=== PATIENT | female | born 1980 | race Two or more races ===

== ENCOUNTER 2021-03-23 12:55 | Observation (INO) | payer SELFPAY ==
[~2021-03-23] VITALS: Ht 160 cm; Wt 78.7 kg
[2021-03-23] MEDS ORDERED: IV RINGERS,LACTATED 1000ML 1,000 ML IV PRN (14:00)
[2021-03-23 14:10] LABS: BILIRUBIN,URINE NEGATIVE (NEG); CLARITY,URINE CLEAR; COLOR,URINE YELLOW; NITRITE,URINE NEGATIVE (NEG); PROTEIN,URINE NEGATIVE (NEG-TRACE); UROBILINOGEN,URINE 0.2 mg/dL (0.2 mg/dL)
[2021-03-23 14:18] LABS: BACTERIA,URINE 0 /HPF (0-FEW)
[2021-03-23 14:19] LABS: RBC,URINE 0 /HPF (0-2); WBC,URINE OCC /HPF (0-4); YEAST,URINE PRESENT /HPF
[2021-03-23 14:41] LABS: BASO % 1 % (0-3); EOS # 0.1 x10^3/uL (0.0-0.7); EOS % 2 % (0-3); HEMATOCRIT 38.6 % (36.0-47.0); HEMOGLOBIN 13.3 g/dL (12.0-15.5); LYMPH # 1.4 x10^3/uL (1.0-4.8); LYMPH % 18 % (24-48); MEAN CORPUSCULAR HEMOGLOBIN 33 pg (25-35); MEAN CORPUSCULAR HGB CONC 34 g/dL (31-37); MEAN CORPUSCULAR VOLUME 95 fL (79-100); MONO # 0.5 x10^3/uL (0.0-1.1); MONO % 7 % (0-9); NEUT # 5.5 x10^3/uL (1.8-7.7); NEUT % 73 % (31-73); PLATELET COUNT 290 x10^3/uL (140-400); RED BLOOD COUNT 4.06 x10^6/uL (3.50-5.40); RED CELL DISTRIBUTION WIDTH 14.2 % (11.5-14.5); WHITE BLOOD COUNT 7.6 x10^3/uL (4.0-11.0)
--- NOTE | 2021-03-23 16:33 | RAD ---
CLINICAL HISTORY: Reason: oligohydramnios / Spl. Instructions: / History: COMPARISON: None available. TECHNIQUE: Multiple grayscale images, color Doppler, and M-mode images of the uterus are obtained. Bi ophysical profile was performed. FINDINGS: The lie is cephalic. JAMES: 0.9 Heart Rate:140 BREATHIN MOVEMENT: 2 TONE: 2 FLUID: 0 BIOPHYSICAL PROFILE SCORE: 6 Placenta is posterior in location. Estimated gestational age by ultrasound 36 weeks 4 days. IMPRESSION: 1. Oligohydramnios. 2. Biophysical profile score 6 out of 8. Electronically signed by: Iván Green DO (03/23/2021 4:31 PM) [id number]
== END 2021-03-23 15:48 | disposition home or self-care (01) ==
LOC: 3 SO LND 12:55
PROVIDERS: ADMIT Obstetrics & Gynecology; ATTEND Obstetrics & Gynecology
DX: O36.8930 Maternal care for other specified fetal problems, third trimester, not applicable or unspecified (principal); Z20.822 Contact with and (suspected) exposure to COVID-19; Z3A.36 36 weeks gestation of pregnancy; Z79.899 Other long term (current) drug therapy
CPT/HCPCS: 36415; 59025; 76819; 81001; 82962; 85025; 86592; 86762; 86850; 86900; 86901; 87340; 87426; 87653; G0378; G0379; U0003; U0005

== ENCOUNTER 2021-03-24 06:23 | Inpatient (IN) | payer SELFPAY ==
[~2021-03-24] VITALS: Ht 160 cm; Wt 78.0 kg
[2021-03-24] MEDS ORDERED: IV RINGERS,LACTATED 1000ML 1,000 ML IV SCH (06:45)
[2021-03-24] MEDS ORDERED: IV NORMAL SALINE 1000ML BAG 1,000 ML IV SCH (06:45)
[2021-03-24] MEDS ORDERED: CITRIC ACID/SODIUM CITRATE 30 ML SOLUTION. PO ONE (07:00)
[2021-03-24] MEDS ORDERED: ceFAZolin SODIUM 3 GM in IV DEXTROSE 5% 100ML 100 ML IV PRN (07:30)
[2021-03-24 07:32] LABS: HEMATOCRIT 35.9 % (36.0-47.0); HEMOGLOBIN 12.6 g/dL (12.0-15.5); RED BLOOD COUNT 3.89 x10^6/uL (3.50-5.40); RED CELL DISTRIBUTION WIDTH 14.1 % (11.5-14.5); WHITE BLOOD COUNT 7.6 x10^3/uL (4.0-11.0)
[2021-03-24 07:33] VITALS: BP 123/84
--- NOTE | 2021-03-24 07:38 | PDOC1 ---
PAPER PATTERN FOLDER H&P Date of Admission: Date of Admission: Mar 24, 2021 at 06:23 History of Present Illness: EDC: 04/14/21 LMP: 07/08/20 40y @ 37.0 by L=12 presents for scheduled indxn. The pt underwent an u/s yesterday revealing an JAMES of 4.2. She was sent to L&D for testing and placed on the schedule for today. The pt began her care in [place]. The pt was recently dxed with GDM. She was given supplies on 03/10. The pt had a C/S with her first . It does not sound like she was given a trial of labor. She was told by her provider that she would probably need a repeat with her next . She was told that based on her age, her narrow vaginal canal and that she would not dilate. The pt desired a repeat for this . PMH: Denies PSH: 2014 Meds: PNV All: NKDA OBHx: TC/S x 1 SH: no tob, no EtOH FH: vulvar cancer. Medications: Meds: Current Medications Medications (Trade) Dose Ordered Sig/Donell Route PRN Reason Start Time Stop Time Status Last Admin Dose Admin Ringer's Solution 1,000 ml @ 125 mls/hr Q8H IV 03/24/21 06:45 03/24/21 07:31 Citric Acid/ Sodium Citrate (Bicitra) 30 ml 1X ONCE PO 03/24/21 07:00 03/24/21 07:01 DC 03/24/21 07:30 Cefazolin Sodium 3 gm/Dextrose 100 ml @ 200 mls/hr 1X PREOP PRN IV PRIOR TO PROCEDURE 03/24/21 07:30 03/25/21 07:29 03/24/21 07:31 Allergies: Coded Allergies: No Known Drug Allergies (Unverified , 03/23/21) Physical Exam: Vital Signs: Vital Signs Date Time Temp Pulse Resp B/P (MAP) Pulse Ox O2 Delivery O2 Flow Rate FiO2 03/24/21 07:33 98.8 81 18 123/84 (97) Room Air 98.8 PE: GENERAL: No apparent distress. Alert and oriented. HEENT: Head normocephalic, atraumatic. NECK: Supple LUNGS: Clear to auscultation. HEART: RRR, S1, S2 present, pulses intact ABDOMEN: Soft, positive bowel sounds. EXTREMITIES: No cyanosis or edema. NEUROLOGIC: Normal speech, normal tone PSYCHIATRIC: Normal affect, normal mood. SKIN: No ulceration. FHT: 140's +acels/no decels/mLTV Kraemer: quiet Labs: Laboratory Tests Test 03/24/21 07:21 White Blood Count 7.6 x10^3/uL (4.0-11.0) Red Blood Count 3.89 x10^6/uL (3.50-5.40) Hemoglobin 12.6 g/dL (12.0-15.5) Hematocrit 35.9 % (36.0-47.0) L Mean Corpuscular Volume 92 fL (79-100) Mean Corpuscular Hemoglobin 32 pg (25-35) Mean Corpuscular Hemoglobin Concent 35 g/dL (31-37) Red Cell Distribution Width 14.1 % (11.5-14.5) Platelet Count 294 x10^3/uL (140-400) Laboratory Tests 03/24/21 07:21 Laboratory Tests 03/24/21 07:21 Assessment & Plan: A/P 40y @ 37.0 by L=12 1.) Transfer of care from [place] 2.) AMA 3.) A1DM 4.) Prev C/S x 1 - desires repeat 5.) TDAP given Kwadwo in [place] 6.) Fetus cat I FHT 7.) GBS pending JATINDER GUERRA MD Mar 24, 2021 07:38
[2021-03-24] MEDS ORDERED: MORPHINE PF 10 MG/10 ML AMPUL. ONE (07:54)
[2021-03-24] MEDS ORDERED: fentaNYL PF VIAL 100 MCG/2 ML VIAL ONE (07:54)
[2021-03-24] MEDS ORDERED: OXYTOCIN 10 UNIT/ML VIAL. ONE (08:39)
[2021-03-24] MEDS ORDERED: ONDANSETRON PF 4 MG/2 ML VIAL. ONE (09:24)
[2021-03-24] MEDS ORDERED: PHENYLEPHRINE in 0.9% NACL PF 1 MG/10 ML SYRINGE. IV ONE (09:24)
[2021-03-24] MEDS ORDERED: TDaP (Adacel) per PROTOCOL. MC PRN (10:00)
[2021-03-24] MEDS ORDERED: BENZOCAINE 20% TOPICAL AEROSOL SPRAY 57GM CAN. TP PRN (10:00)
[2021-03-24] MEDS ORDERED: 0.9 % SODIUM CHLORIDE 10 ML DISP.SYRIN. IV PRN (10:00)
[2021-03-24] MEDS ORDERED: ACETAMINOPHEN 325 MG TABLET. PO PRN (10:00)
[2021-03-24] MEDS ORDERED: diphenhydrAMINE ORAL ELIXIR 12.5 MG/5 ML ML PO PRN (10:00)
[2021-03-24] MEDS ORDERED: oxyCODONE/APAP 5/325 1 TAB TABLET PO PRN (10:00)
[2021-03-24] MEDS ORDERED: OXYTOCIN 30 UNIT/500 ML PREMIX 500 ML IV PRN (10:00)
[2021-03-24] MEDS ORDERED: MMR per PROTOCOL. MC PRN (10:00)
[2021-03-24] MEDS: KETOROLAC 30 MG/ML VIAL. IVP PRN ×2 (11:41→17:43)
--- NOTE | 2021-03-24 11:49 | PDOC4 ---
OPERATIVE NOTE: PreOp Dx: 1.) IUP @ 37.0 by L=12, 2.) Oligohydramnios, 3.) AMA, 4.) A1DM, 5.) Prev C/S x 1 - desires repeat, 6.) Transfer of care from [place], 7.) GBS pending, 8.) DPS PostOp Dx: same Procedure: RLTCS/BTL Surgeon: Jessica Guerra Anesthesia: Spinal EBL: 700 cc Fluids: 1200 cc UOP: 200 cc Complications: None Findings: viable female delivered at 0838. Wt 6 lb 1.7 oz. APGARS 8/9. Globular, fibroid uterus. Nml tubes and ovaries Path: Cord blood, Cord ABG, bilateral tubal segments, placenta JATINDER GUERRA MD Mar 24, 2021 11:49
[2021-03-24 12:00] VITALS: BP 116/74
--- NOTE | 2021-03-24 12:55 | OP ---
DATE OF SURGERY: 03/24/2021 PREOPERATIVE DIAGNOSES: 1. Intrauterine at 37 weeks and 0 days by last menstrual period equal to 12-week ultrasound. 2. Oligohydramnios. 3. Advanced maternal age. 4. A1 diabetes. 5. Previous section x 1, desires repeat. 6. Group B Streptococcus pending. 7. Desires permanent sterilization. 8. Transfer of care from [place] in the third trimester. POSTOPERATIVE DIAGNOSES: 1. Intrauterine at 37 weeks and 0 days by last menstrual period equal to 12-week ultrasound. 2. Oligohydramnios. 3. Advanced maternal age. 4. A1 diabetes. 5. Previous section x 1, desires repeat. 6. Group B Streptococcus pending. 7. Desires permanent sterilization. 8. Transfer of care from [place] in the third trimester. PROCEDURE: Repeat low transverse with bilateral tubal ligation. SURGEON: Neal Green MD. ANESTHESIA: Spinal. ESTIMATED BLOOD LOSS: 700 mL. FLUIDS: 1200 mL. URINE OUTPUT: 200 mL. COMPLICATIONS: None. FINDINGS: Viable female delivered at 08:38, weighing 6 pounds 1.7 ounces with Apgars of 8 and 9, globular fibroid uterus noted with normal tubes and ovaries. PATHOLOGY: Cord blood, cord ABG, bilateral tubal segments and placenta. INDICATIONS: The patient is a 40-year-old 2, para 1-0-0-1, who presented to Labor and Delivery at 37 weeks and 0 days by LMP equal to a 12-week ultrasound for scheduled . The patient began her care in [place] and a third trimester transferred to [facility]. During her routine ultrasound yesterday, she was found to have an JAMES of 4.2. The patient was sent to Labor and Delivery for evaluation and treatment. testing was performed, which again revealed her to be oligo with an JAMES of 0. The remainder of her testing was reassuring. The patient was placed on the schedule the following morning for a repeat . The patient had also been diagnosed with gestational diabetes only 2 weeks ago and had only just begun recording her blood sugars. DESCRIPTION OF PROCEDURE: The patient was taken to the operating room where spinal anesthesia was placed without difficulty. The patient was prepped and draped in normal sterile fashion. Pfannenstiel skin incision was made through her previous incision, carried down to underlying layer of fascia. The fascia was then nicked in the midline. The fascial incision was then extended laterally with Melgar scissors. The superior aspect of the fascial incision was then grasped with Domingo clamps, elevated and the underlying rectus muscle was dissected off of the scalpel. Attention was then turned to the inferior aspect of the fascial incision, which again was grasped with Domingo clamps, elevated and the underlying rectus muscle dissected with Melgar scissors. At that point, the midline of the rectus muscle was identified and to allow for 2 hemostats to grasp the peritoneum. The peritoneum was entered sharply with Metzenbaum scissors. Digital examination of the peritoneal opening revealed no adhesions. The peritoneal incision was then extended with traction and countertraction with good visualization of the bladder. At that point, the Domo ring was then placed in the abdomen to better visualize the lower uterine segment. Metzenbaum scissors were used to create a bladder flap. At that point, the lower uterine segment was incised in transverse fashion with a scalpel. The hysterotomy was extended with traction and countertraction. At that point, the infant's head was flexed and brought to the hysterotomy. The could be readily delivered, so bandage scissors were used on the right to extend the hysterotomy. Once this had been performed, the 's head was able to be delivered with fundal pressure. The rest of infant was delivered atraumatically. The cord was double clamped and cut and was handed over to the waiting aircraft painter apprentice. Placenta was removed manually. The uterus was then cleared of all clots and debris. The uterine incision was then repaired with #1 chromic in a running locked fashion. The second layer of the same suture was used to imbricate. Good hemostasis was noted. At that point, the uterus was exteriorized, so that the tubal could be performed. The left tube was then identified and followed out to the fimbria. The tube was then grasped with a Tara clamp. An opening was created in the avascular portion of the mesosalpinx. Two free ties of 0 gut were then used to ligate the tube. This 2 cm segment of tube was then excised and sent to pathology. The edges were made hemostatic with the Bovie. Attention was then turned to the right tube, which was followed out to the fimbria. Tropic clamp was then used to grasp the tube with the Bovie. An opening was then created in the avascular space of the mesosalpinx just below the tube. Two free ties of 0 plain gut again were used to ligate the tube. This 2 cm segment of the tube was then sent to pathology. The Bovie was again used to make the edges hemostatic. Good hemostasis was noted. At that point, the uterus was returned to the abdomen. The gutters were copiously irrigated and cleared of all clots and debris. Reexamination of the tubal sites revealed good hemostasis. The Domo ring was then removed. The peritoneum was then reapproximated with 2-0 Vicryl in a running fashion. The muscle was reapproximated with 2-0 Vicryl in a running fashion. The fascia was then closed with 0 Vicryl in a running fashion. The skin was closed with 3-0 Monocryl in a subcuticular manner. The patient tolerated the procedure well. Sponges, laps and needles correct x 3. Two grams of Ancef were given prior to the procedure. The patient tolerated the procedure well and was taken to the recovery room in stable condition. CLARA DR: Kareem TID: [id number] [facility] HOSPITALAngelica
--- NOTE | 2021-03-24 15:50 | NUR ---
Mild tenderness and induration approximately 3 cm superior to IV insertion site, IV fluids infusing well, eBreket De Jesus RN assessed site as well, warm pack applied and Pt reports relief of tenderness
[2021-03-24 16:00] VITALS: BP 109/70
[2021-03-24 19:09] VITALS: BP 118/81
[2021-03-24] MEDS: FERROUS SULFATE 325 MG TABLET. PO SCH (19:34)
[2021-03-24] MEDS: DOCUSATE SODIUM 100 MG CAPSULE. PO PRN (19:50)
[2021-03-24 19:56] VITALS: BP 126/83
[2021-03-24 23:47] VITALS: BP 112/66
[2021-03-25] MEDS: KETOROLAC 30 MG/ML VIAL. IVP PRN ×2 (00:02→06:32)
[2021-03-25 06:25] VITALS: BP 125/78
[2021-03-25 07:20] VITALS: BP 117/70
[2021-03-25 07:37] LABS: HEMATOCRIT 33.8 % (36.0-47.0); HEMOGLOBIN 11.7 g/dL (12.0-15.5); RED BLOOD COUNT 3.58 x10^6/uL (3.50-5.40); WHITE BLOOD COUNT 7.7 x10^3/uL (4.0-11.0)
[2021-03-25] MEDS: DOCUSATE SODIUM 100 MG CAPSULE. PO PRN (08:30)
[2021-03-25] MEDS: PRENATAL MULTIVITAMIN TABLET. PO SCH (08:30)
[2021-03-25] MEDS: FERROUS SULFATE 325 MG TABLET. PO SCH (08:30)
[2021-03-25] MEDS: oxyCODONE/APAP 5/325 1 TAB TABLET PO PRN (08:32)
[2021-03-25] MEDS ORDERED: MULTIVITAMIN with MINERAL TABLET. PO SCH (09:00)
--- NOTE | 2021-03-25 11:22 | PDOC ---
WEDDING DAY COORDINATOR PROGRESS NOTE Date of Service: DATE: 03/25/21 TIME: 11:21 Subjective: Pt with good pain control. Harley PO. Voiding. Minimal lochia. Objective: Vital Signs: Vital Signs Date Time Temp Pulse Resp B/P (MAP) Pulse Ox O2 Delivery O2 Flow Rate FiO2 03/24/21 07:33 98.8 81 18 123/84 (97) Room Air 98.8 03/24/21 19:56 95 Vital Signs Date Time Temp Pulse Resp B/P (MAP) Pulse Ox O2 Delivery O2 Flow Rate FiO2 03/25/21 09:05 18 Room Air 03/25/21 08:32 96 03/25/21 07:20 99.7 117/70 (86) 99.7 03/25/21 06:25 93 Labs: Laboratory Tests Test 03/25/21 06:35 White Blood Count 7.7 x10^3/uL (4.0-11.0) Red Blood Count 3.58 x10^6/uL (3.50-5.40) Hemoglobin 11.7 g/dL (12.0-15.5) L Hematocrit 33.8 % (36.0-47.0) L Mean Corpuscular Volume 94 fL (79-100) Mean Corpuscular Hemoglobin 33 pg (25-35) Mean Corpuscular Hemoglobin Concent 35 g/dL (31-37) Red Cell Distribution Width 14.0 % (11.5-14.5) Platelet Count 277 x10^3/uL (140-400) Laboratory Tests 03/25/21 06:35 Laboratory Tests 03/25/21 06:35 Physical Exam: GENERAL: No apparent distress. Alert and oriented. HEENT: Head normocephalic, atraumatic. NECK: Supple LUNGS: Clear to auscultation. HEART: RRR, S1, S2 present, pulses intact ABDOMEN: Soft, positive bowel sounds. EXTREMITIES: No cyanosis or edema. NEUROLOGIC: Normal speech, normal tone PSYCHIATRIC: Normal affect, normal mood. SKIN: No ulceration. FFNT below umb No C/C/E Inc: C/D/I Assessment & Plan: A/P 40y POD #1 s/p RLTCS/BTL 1.) PP doing well 2.) Transfer of care from [place] 3.) A1DM 4.) TDAP given Kwadwo in [place] 5.) Hgb 12.6 -> 11.7 6.) Cont PO care JATINDER GUERRA MD Mar 25, 2021 11:21
[2021-03-25 12:25] VITALS: BP 127/84
[2021-03-25] MEDS: IBUPROFEN 400 MG TABLET. PO PRN (12:40)
[2021-03-25 17:44] VITALS: BP 119/70
[2021-03-26 00:15] VITALS: BP 121/76
[2021-03-26] MEDS: IBUPROFEN 400 MG TABLET. PO PRN ×3 (00:36→22:59)
[2021-03-26] MEDS: oxyCODONE/APAP 5/325 1 TAB TABLET PO PRN ×4 (00:37→18:24)
[2021-03-26 06:01] VITALS: BP 140/78
[2021-03-26 09:30] VITALS: BP 133/73
--- NOTE | 2021-03-26 10:03 | PDOC ---
VIDEO CAMERA OPERATOR PROGRESS NOTE Date of Service: DATE: 03/26/21 TIME: 10:03 Subjective: Pt with good pain control. Harley PO. Voiding. Minimal lochia Objective: Vital Signs: Vital Signs Date Time Temp Pulse Resp B/P (MAP) Pulse Ox O2 Delivery O2 Flow Rate FiO2 03/25/21 07:20 99.7 18 117/70 (86) 96 Room Air 99.7 03/25/21 12:25 20 Vital Signs Date Time Temp Pulse Resp B/P (MAP) Pulse Ox O2 Delivery O2 Flow Rate FiO2 03/26/21 09:30 97.8 90 18 133/73 (93) 97 Room Air 97.8 Physical Exam: GENERAL: No apparent distress. Alert and oriented. HEENT: Head normocephalic, atraumatic. NECK: Supple LUNGS: Clear to auscultation. HEART: RRR, S1, S2 present, pulses intact ABDOMEN: Soft, positive bowel sounds. EXTREMITIES: No cyanosis or edema. NEUROLOGIC: Normal speech, normal tone PSYCHIATRIC: Normal affect, normal mood. SKIN: No ulceration. FFNT below umb No C/C/E Inc: C/D/I Assessment & Plan: A/P 40y POD #2 s/p RLTCS/BTL 1.) PP doing well 2.) Transfer of care from [place] 3.) A1DM 4.) TDAP given Kwadwo in [place] 5.) Hgb 12.6 -> 11.7 6.) Cont PO care JATINDER GUERRA MD Mar 26, 2021 10:03
[2021-03-26 14:00] VITALS: BP 129/81
[2021-03-26] MEDS: DOCUSATE SODIUM 100 MG CAPSULE. PO PRN (14:11)
[2021-03-26 19:30] VITALS: BP 127/79
[2021-03-26 22:59] VITALS: BP 112/71
[2021-03-27 05:08] VITALS: BP 130/85
[2021-03-27 08:38] VITALS: BP 120/74
[2021-03-27] MEDS ORDERED: IBUP-1060 PO (09:23)
[2021-03-27] MEDS ORDERED: DOCU-109 PO (09:23)
[2021-03-27] MEDS ORDERED: OXYC1TAB15 PO (09:23)
[2021-03-27] MEDS: oxyCODONE/APAP 5/325 1 TAB TABLET PO PRN ×3 (09:33→14:50)
[2021-03-27] MEDS: PRENATAL MULTIVITAMIN TABLET. PO SCH (09:35)
[2021-03-27] MEDS: DOCUSATE SODIUM 100 MG CAPSULE. PO PRN (09:36)
[2021-03-27] MEDS: IBUPROFEN 400 MG TABLET. PO PRN (09:37)
--- NOTE | 2021-03-27 10:12 | PDOC ---
STATE HISTORICAL SOCIETY DIRECTOR PROGRESS NOTE Date of Service: DATE: 03/27/21 TIME: 10:11 Subjective: Pt with good pain control. Harley PO. Voiding. Minimal lochia. Objective: Vital Signs: Vital Signs Date Time Temp Pulse Resp B/P (MAP) Pulse Ox O2 Delivery O2 Flow Rate FiO2 03/26/21 09:30 97.8 90 18 133/73 (93) 97 Room Air 97.8 Vital Signs Date Time Temp Pulse Resp B/P (MAP) Pulse Ox O2 Delivery O2 Flow Rate FiO2 03/27/21 09:35 16 Room Air 03/27/21 05:08 98.1 73 130/85 (100) 95 98.1 Physical Exam: GENERAL: No apparent distress. Alert and oriented. HEENT: Head normocephalic, atraumatic. NECK: Supple LUNGS: Clear to auscultation. HEART: RRR, S1, S2 present, pulses intact ABDOMEN: Soft, positive bowel sounds. EXTREMITIES: No cyanosis or edema. NEUROLOGIC: Normal speech, normal tone PSYCHIATRIC: Normal affect, normal mood. SKIN: No ulceration. FFNT below umb No C/C/E Inc: C/D/I Assessment & Plan: A/P 40y POD #3 s/p RLTCS/BTL 1.) PP doing well 2.) Transfer of care from [place] 3.) A1DM 4.) TDAP given Kwadwo in [place] 5.) Hgb 12.6 -> 11.7 6.) D/c home JATINDER GUERRA MD Mar 27, 2021 10:12
--- NOTE | 2021-03-27 10:46 | DS ---
DATE OF DISCHARGE: 03/27/2021 ADMISSION DIAGNOSES: 1. Intrauterine at 37 weeks and 0 days by last menstrual period equal to a 12-week ultrasound. 2. Previous section x 1, desires repeat. 3. Advanced maternal age. 4. A1 diabetes. 5. Oligohydramnios. 6. Transfer of care from [place] in the third trimester. 7. Group B Streptococcus pending. 8. Desires permanent sterilization. DISCHARGE DIAGNOSES: 1. Intrauterine at 37 weeks and 0 days by last menstrual period equal to a 12-week ultrasound. 2. Previous section x 1, desires repeat. 3. Advanced maternal age. 4. A1 diabetes. 5. Oligohydramnios. 6. Transfer of care from [place] in the third trimester. 7. Group B Streptococcus pending. 8. Desires permanent sterilization. PROCEDURES: Repeat low transverse with bilateral tubal ligation. BRIEF HOSPITAL COURSE: The patient is a 40-year-old 2, para 1-0-0-1, who presented to Labor and Delivery at 37 weeks and 0 days by LMP equal to a 12-week ultrasound for scheduled . The patient had been seen the prior day during a routine ultrasound appointment and was found to have an JAMES of 4.2. The patient was sent to Labor and Delivery for testing, which was reassuring, but also had an JAMES of 0. The patient was put on the schedule for the following day for a repeat . Of note, the patient also was recently diagnosed with gestational diabetes and had only begun recording her blood sugars. When the patient returned on 03/24/2021, the patient underwent a repeat with bilateral tubal ligation. See operative note for full detail. By postop day #3, the patient was meeting all discharge criteria and was subsequently discharged home. Of note, the patient's hemoglobin on admission was 12.6 and after delivery was 11.7. DISCHARGE INSTRUCTIONS: The patient was told not to lift anything greater than 20 pounds, have pelvic rest for 6 weeks. CALL IF: The patient was to call if she had fevers, chills, nausea, vomiting, abdominal pain or any additional questions or concerns. FOLLOWUP APPOINTMENT: The patient was to follow up on 04/06/2021 at 1:30 p.m. with Clemencia. DISCHARGE MEDICATIONS: The patient was given a prescription for Percocet 5 mg, 15 pills, Motrin 800 mg, 30 pills and Colace 100 mg, 30 pills. MECHELLE/BARBARA DR: Kareem TID: [id number]
[2021-03-27] MEDS ORDERED: FLU VACC QUAD 21-22 (6MOS+) PF 0.5 ML SYRINGE. VAX IM ONE (12:45)
[2021-03-27 15:00] VITALS: BP 138/61
--- NOTE | 2021-03-27 15:00 | NUR ---
Pt. discharges via wheelchair at this time, belongings go with pt., infant accompanies pt. Vital signs stable.
--- NOTE | 2021-03-27 15:12 | PATHOLOGY ---
[facility] Accession Number: [id number] . 01 Material submitted: . fallopian tube - LEFT AND RIGHT FALLOPIAN TUBES. Modifiers: bilateral . 01 Clinical history: . SCHEDULED RPT C/S WITH BTL AMA, GESTATIONAL DIABETES, L2 . 02 Diagnosis: Bilateral tubal ligation: - Segments (2) of fallopian tube confirmed, with few subserosal cystic [place] rests and small paratubal cysts. ([facility]; 03/27/2021) [facility] 03/27/2021 0913 Local . 02 Electronically signed: . Jeff Gallego MD, Pathologist NPI- [id number] . 01 Gross description: . Fixative: Formalin Labeled: L and R fallopian tube Fallopian tube #1 Measurements: 2.4 cm in length by up to 0.5 cm in diameter Fimbriated: No External surface: Light mejia-storey and smooth Cut Surface: Pinpoint lumen Fallopian tube #2 Measurements: 2.2 cm in length by 0.4 cm in diameter Fimbriated: No External surface: Light mejia-storey and smooth Cut Surface: Pinpoint lumen . A1 Entire fallopian tube #1 A2 Entire fallopian tube #2 ([facility]; 03/24/2021) [facility] 03/24/2021 1604 Local . 02 Pathologist provided ICD-10: N83.8, Z30.2 . 02 CPT . 298720 Specimen Comment: A courtesy copy of this report has been sent to [phone] Specimen Comment: Report sent to Performed at: [address], [place], [place] [id number] MD Reagan Hou MD Phone: [phone] Performed at: 02 [facility] [address] [place], [place] [id number] MD Jeff Gallego MD Phone: [phone]
== END 2021-03-27 15:00 | disposition home or self-care (01) | DRG 784 ==
LOC: 3 SO LND 06:23 → EDUNIT# 08:00 → 3 SO LND 12:00
PROVIDERS: ADMIT Obstetrics & Gynecology; ATTEND Obstetrics & Gynecology
PROC: 10D00Z1 Extraction of Products of Conception, Low, Open Approach (ICD-10-PCS; principal; 2021-03-24)
PROC: 0UB70ZZ Excision of Bilateral Fallopian Tubes, Open Approach (ICD-10-PCS; 2021-03-24)
DX: O34.211 Maternal care for low transverse scar from previous cesarean delivery (principal); O41.03X0 Oligohydramnios, third trimester, not applicable or unspecified; O24.420 Gestational diabetes mellitus in childbirth, diet controlled; O34.13 Maternal care for benign tumor of corpus uteri, third trimester; D25.9 Leiomyoma of uterus, unspecified; Z30.2 Encounter for sterilization; Z37.0 Single live birth; Z3A.37 37 weeks gestation of pregnancy; Z80.8 Family history of malignant neoplasm of other organs or systems
CPT/HCPCS: 36415; 85027; 86850; 86900; 86901; 88302; C1755; J0690; J1885; J2274; J2370; J2405; J2590; J3010; J7060; J7120; G0378